=== PATIENT | female | born 1990 | race Caucasian/White ===

== ENCOUNTER 2024-08-22 13:42 | Emergency (ER) | payer OTHER, SELFPAY ==
[2024-08-22 13:44] VITALS: BP 124/75
[2024-08-22 14:09] LABS: % Basophils 0.6 % (0-2); % Eosinophils 1.5 % (0-6); % Lymphocytes 29.8 % (20.5-51.1); % Monocytes 5.9 % (1.7-9.3); % Neutrophils 61.2 % (42.2-75.2); Absolute Basophils 0.1 10^3/uL (0-0.2); Absolute Eosinophils 0.2 10^3/uL (0-0.7); Absolute Immature Granulocytes 0.1 10^3/uL (0-0.05); Absolute Lymphocytes 3.3 10^3/uL (1.2-3.4); Absolute Monocytes 0.7 10^3/uL (0.1-0.6); Absolute Neutrophils 6.7 10^3/uL (1.4-6.5); Hematocrit 36.7 % (37.0-47.0); Hemoglobin 13.1 g/dL (12.0-16.0); Mean Corp Hgb Conc. 35.7 g/dL (33.0-37.0); Mean Corpuscular Hgb 32.7 pg (27.0-31.0); Mean Corpuscular Volume 91.5 fL (81.0-99.0); Mean Platelet Volume 11.5 fL (7.4-10.4); Nucleated Red Blood Cells % 0 %; Platelet Count 214 10^3/uL (130-400); Red Blood Cell Count 4.01 10^6/uL (4.20-5.40); Red Cell Dist. Width 11.9 % (11.5-14.5)
[2024-08-22 14:28] LABS: ALT (SGPT) 30 U/L (0-35); AST (SGOT) 35 U/L (14-36); Albumin 4.8 g/dl (3.5-5.0); Alkaline Phosphatase 63 U/L (38-126); Blood Urea Nitrogen 14 mg/dl (7-17); Calcium 9.3 mg/dl (8.4-10.2); Carbon Dioxide 21 mmol/L (22-30); Chloride 100 mmol/L (98-107); Glucose 107 mg/dl (70-99); Sodium 133 mmol/L (135-145); Total Bilirubin 0.6 mg/dl (0.2-1.3); Total Protein 7.4 g/dl (6.3-8.2); eGFR > 60.00
--- NOTE | 2024-08-22 16:01 | ED.GENMED ---
History of Present Illness
General
Chief Complaint: Problems
Source: patient
Exam Limitations: none
Time Seen by Provider: 08/22/24 14:57
Nursing documentation reviewed up to this point in time: agreed with
History of Present Illness
History of Present Illness:
Patient is a 34y.o female at approximately 9 weeks gestation presenting to the emergency department with vaginal bleeding. Patient reports having a 'gush' of bright red blood earlier today and now with some mild spotting. Patient denies any
associated abdominal pain/cramping, nausea/vomiting, lightheadedness/dizziness. No shortness of breath. No dysuria.
Patient reports very similar episode approximately [address] to her first ultrasound. This was discussed with her CHILD AND FAMILY THERAPIST after they did find a small subchorionic hemorrhage on ultrasound as well as a documented intrauterine .
She was advised to come to the emergency department with any further vaginal bleeding.
Patient is following with [place] [facility]. Patient states that she is blood type O+.
Review of Systems
Review of Systems
Allergies reviewed?: Yes
All Other Systems: ROS reviewed and negative except as documented in HPI and ROS
Phy Exam
Physical Exam
Physical Exam:
Vitals: Patient's vital signs are stable. Afebrile
General: Patient is well appearing, no acute distress
Skin: Warm and dry, no rashes or lesions
Head: Normocephalic, atraumatic
Eyes: Sclera nonicteric. EOMs intact. No nystagmus.
Throat: Protecting airway
Neck: Normal ROM, no cervical spine tenderness, no meningismus
Cardiac: Regular rate and rhythm, no murmurs.
Pulm: Normal respiratory effort, no wheezes, rales, rhonchi heard on exam.
Abdomen: No abdominal tenderness.
Extremities: No evidence of cyanosis or edema
Neuro: AAOx3. CN II-XII intact. No focal neurologic deficits.
Psychiatric: Normal affect.
Course
Orders/Labs/Results
Orders:
Orders
08/22/24 13:46
US 1st Trimester Urgent
Comment:
Reason For Exam: 9 wks preg vag blding started ayt 1pm today
08/22/24 13:54
Beta HCG Quantitative Urgent
Is this a screen?: No
Complete Blood Count/With Diff Urgent
Comprehensive Metabolic Panel Urgent
08/22/24 16:08
Type+Screen Urgent
Urinalysis Reflex To Culture Urgent
Date Specimen was Collected: 08/22/24
Time Specimen was Collected: 16:04
Urine Microscopic Reflex Cult Urgent
08/22/24 16:50
ABO2 Urgent
BBK Wristband Number:
Associate notified that ABO2 has been ordered: [id number]
Date: 08/22/24
Time: 16:42
Break Off Worker ID: [id number]
Abnormal Lab Results
08/22/24 08/22/24
13:54 16:08
WBC 11.0 H 10^3/uL
(4.8-10.8)
RBC 4.01 L 10^6/uL
(4.20-5.40)
Hct 36.7 L %
(37.0-47.0)
MCH 32.7 H pg
(27.0-31.0)
MPV 11.5 H fL
(7.4-10.4)
Abs Immat Gran (auto) 0.1 H 10^3/uL
(0-0.05)
Absolute Neuts (auto) 6.7 H 10^3/uL
(1.4-6.5)
Absolute Monos (auto) 0.7 H 10^3/uL
(0.1-0.6)
Immature Gran % 1.0 H %
(0-0.5)
Sodium 133 L mmol/L
(135-145)
Carbon Dioxide 21 L mmol/L
(22-30)
Creatinine 0.5 L mg/dL
(0.6-1.0)
Glucose 107 H mg/dl
(70-99)
Ur Occult Blood Reflex 3+ A
(Negative)
Urine RBC 3-6 A /HPF
(0-2)
08/22/24 13:54
08/22/24 13:54
Vital Signs
Initial and Last Documented VS:
Initial Vital Signs
Temp Pulse Resp BP Pulse Ox
98.0 F 68 16 124/75 98
08/22/24 13:44 08/22/24 13:44 08/22/24 13:44 08/22/24 13:44 08/22/24 13:44
Last Documented Vital Signs
Temp Pulse Resp BP Pulse Ox
98.0 F 81 16 113/71 98
08/22/24 13:44 08/22/24 17:33 08/22/24 17:33 08/22/24 17:33 08/22/24 13:44
Information
Weeks gestation: Weeks: (9 weeks, 6 days)
Location: Location: (Intrauterine)
MDM/Problems Addressed
Differential Diagnosis Includes:
Not limited to: Threatened , inevitable , missed , subchorionic hemorrhage, etc.
MDM/Problems Addressed:
34-year-old G2, P0 female at approximately 9 weeks gestation presenting with vaginal bleeding. No associated abdominal pain, lightheadedness, shortness of breath. Patient did have ultrasound documented intrauterine last week with
CHILD AND FAMILY THERAPIST�[place]. Does have known subchorionic hemorrhage. Vital stable. Physical exam as above. Patient very well-appearing, no apparent distress. Abdomen soft and nontender. Cardio/pulmonary assessment unremarkable. Basic labs initiated in
triage without clinically significant abnormalities. Hemoglobin is stable. Beta hCG elevated. Given known subchronic hemorrhage�symptoms likely secondary to this. However�unable to fully exclude possible threatened . Will obtain pelvic
ultrasound. Will check urinalysis. Will confirm blood type to determine need for RhoGAM. Anticipate discharge.
Update: Pelvic ultrasound report reviewed which does show live intrauterine gestation approximately 9 weeks 6 days. Small subchorionic hemorrhage noted once again on ultrasound. Ultimately�I do suspect symptoms secondary to subchronic hemorrhage.
However discussed with patient unable to exclude threatened miscarriage despite no abnormal findings on ultrasound today. Urinalysis shows no signs of bacteria or infection. Blood type O+�RhoGAM not indicated. Patient stable for discharge with
CHILD AND FAMILY THERAPIST follow-up outpatient. She has appointment next week. Close return precautions discussed. Patient seen with attending physician
Chronic conditions affecting care:
N/A
Acute Exacerbation and/or Progression of Chronic Illness:
N/A
*Radiology
Radiology exam reviewed: radiology read reviewed
*Pulse Oximetry
Patient hypoxic: no
*EKG
Interpreted by ED Provider?: NA
*Cadd Instructor Interpretation
Rate: Cadd Instructor- N/A
*Critical Care Note
Total Time (30-74mins, 75-104mins- exclusive of procedures): Not Applicable
ED Attending Note
-
Portions of this chart may have been created with voice recognition software.� Occasional wrong word or��sound alike� substitutions may have occurred due to the inherent limitations of voice recognition software.
Discharge Plan
Departure
Patient Disposition: Home (Routine Discharge)
Date of Disposition: 08/22/24
Time of Disposition: 17:25
Patient with high blood pressure during this ER visit?: No
Condition: Good
Covid-19: Not Applicable
Discharge Problem:
Subchorionic hemorrhage in first trimester, Threatened miscarriage in early
Instructions: Threatened Miscarriage (DC), Subchorionic Bleeding
Prescriptions:
No Action
amoxicillin 500 mg Tablet
500 mg PO BID
clindamycin HCl 300 mg capsule
300 mg PO TID Qty: 20 0RF
Referrals:
Ryland Wilkerson DO [Family Provider] -
Activity Restrictions/Additional Instructions:
Return to the emergency department any persistent/heavy vaginal bleeding, dizziness/lightheadedness, abdominal pain, shortness of breath, worsening current symptoms, or any other concerns
-As discussed�your ultrasound did show a small subchorionic hemorrhage which may be the etiology of your vaginal bleeding today. However�we are unable to completely exclude a future miscarriage. You should follow-up very closely with your CHILD AND FAMILY THERAPIST.
You may require a repeat ultrasound
-Stay well-hydrated. I would avoid sexual intercourse until cleared by your CHILD AND FAMILY THERAPIST.
-Follow-up with your CHILD AND FAMILY THERAPIST tomorrow
Monitor your symptoms closely and return to the emergency department with any acute worsening/new symptoms or any other concerns
Interventions
Interventions:
*Risk Screen - Suicide Last Done: 08/22/24 13:44
*General Assessment Last Done: 08/22/24 14:29
*Neglect/Abuse Screening Last Done: 08/22/24 13:44
*ED COVID-19 Vaccine History Last Done: 08/22/24 14:29
*Nursing Disposition Last Done: 08/22/24 17:34
ED-Female Genitourinary Assessment Last Done: 08/22/24 14:29
Discharge Date and Time
Discharge Date/Time: 08/22/24 17:34
Print Language: HEBREW
[2024-08-22 16:49] LABS: Urine Albumin Negative (Neg - Trace); Urine Bilirubin Negative (Negative); Urine Character Clear (Clear); Urine Glucose Negative (Negative); Urine Ketone Negative (Negative); Urine Leukocyte Negative (Negative); Urine Nitrite Negative (Negative); Urine Occult Blood 3+ (Negative); Urine Specific Gravity 1.005 (<1.030); Urine Urobilinogen Negative (Neg - 1+)
[2024-08-22 16:59] LABS: Urine Color Straw
[2024-08-22 17:23] LABS: Urine White Cell 0-2 /HPF (0-5)
[2024-08-22 17:33] VITALS: BP 113/71
== END 2024-08-22 17:34 | disposition home or self-care (01) ==
LOC: EMR 13:42
PROVIDERS: Physician Assistant; Student in an Organized Health Care Education/Training Program; EMERGENCY PHYSICIAN Emergency Medicine; FAMILY PHYSICIAN Family Medicine
DX: O20.0 Threatened abortion (principal); O20.8 Other hemorrhage in early pregnancy; Z3A.09 9 weeks gestation of pregnancy
CPT/HCPCS: 99284; 76801; 80053; 81003; 81015; 84702; 85025; 86850; 86900; 86901

== ENCOUNTER 2024-12-15 07:32 | Emergency (ER) | payer OTHER, SELFPAY ==
[2024-12-15 07:40] VITALS: BP 114/72
--- NOTE | 2024-12-15 08:11 | ED.GENMED ---
History of Present Illness
<CAMPOS Da Silva - Last Filed: 12/15/24 12:07>
General
Chief Complaint: Throat Problem
Source: patient
Exam Limitations: none
Time Seen by Provider: 12/15/24 07:51
History of Present Illness
History of Present Illness:
This is a 34 y/o female in her second trimester with recurrent GERD and reported tonsil stones, in which she removes herself, since her first trimester who presents with odynophagia x 2 days. She reportedly removed a tonsil stone yesterday
and since then she's experienced odynophagia. She feels as though there is an abscess on or near her right tonsil. She did not want to risk infection while and as a result came to ED. She has had strep in the past and this does not feel the
same. Denies fever, excessive fatigue, dysphagia, cervical lymphadenopathy, changes in vision, changes in hearing, chest pain, palpitations, N/V or vaginal bleeding.
She has no sick contacts that she's aware of. She is not allergic to any abx.
Review of Systems
<CAMPOS Da Silva - Last Filed: 12/15/24 12:07>
Review of Systems
All Other Systems: ROS reviewed and negative except as documented in HPI and ROS
Constitutional: Reports no symptoms
EENT: Reports sore throat
Respiratory: Reports no symptoms
Cardiac: Reports no symptoms
ABD/GI: Reports no symptoms
: Reports no symptoms
Musculoskeletal: Reports no symptoms
Phy Exam
<CAMPOS Da Silva - Last Filed: 12/15/24 12:07>
General Physical Exam
General Presentation: well appearing and no apparent distress
General age: appears stated age
General Skin: warm
General Habitus: normal
General Mental: alert
General Hydration: appears well hydrated
ENT Exam
ENT Exam: normocephalic, pharyngeal erythema, swallowing well and tonsillar exudate
Course
<CAMPOS Da Silva - Last Filed: 12/15/24 12:07>
Vital Signs
Initial and Last Documented VS:
Initial Vital Signs
Temp Pulse Resp BP Pulse Ox
98.2 F 80 16 114/72 98
12/15/24 07:40 12/15/24 07:40 12/15/24 07:40 12/15/24 07:40 12/15/24 07:40
Last Documented Vital Signs
Temp Pulse Resp BP Pulse Ox
98.2 F 80 16 114/72 98
12/15/24 07:40 12/15/24 07:40 12/15/24 07:40 12/15/24 07:40 12/15/24 07:40
<Sam Stanton DO - Last Filed: 12/15/24 08:28>
Vital Signs
Initial and Last Documented VS:
Initial Vital Signs
Temp Pulse Resp BP Pulse Ox
98.2 F 80 16 114/72 98
12/15/24 07:40 12/15/24 07:40 12/15/24 07:40 12/15/24 07:40 12/15/24 07:40
Last Documented Vital Signs
Temp Pulse Resp BP Pulse Ox
98.2 F 80 16 114/72 98
12/15/24 07:40 12/15/24 07:40 12/15/24 07:40 12/15/24 07:40 12/15/24 07:40
<CAMPOS Da Silva - Last Filed: 12/15/24 12:07>
MDM/Problems Addressed
Differential Diagnosis Includes:
not limited to: Tonsilloliths vs peritonsillar abscess vs retropharyngeal abscess vs strep pharyngitis
MDM/Problems Addressed:
This is a 34 y/o female in her second trimester with recurrent GERD and reported tonsil stones, in which she removes herself, since her first trimester who presents with odynophagia x 2 days. No other reported symptoms. Vitals stable. NAD.
Some erythema and prominence of right tonsil. Small white punctate noted. Stone vs. pustule. No evidence of abscess noted. Doubt strep pharyngitis. Will cover with course of penicillin VK.
<CAMPOS Da Silva - Last Filed: 12/15/24 12:07>
*Critical Care Note
Total Time (30-74mins, 75-104mins- exclusive of procedures): Not Applicable
ED Attending Note
<CAMPOS Da Silva - Last Filed: 12/15/24 12:07>
-
Portions of this chart may have been created with voice recognition software.� Occasional wrong word or��sound alike� substitutions may have occurred due to the inherent limitations of voice recognition software.
<Sam Stanton DO - Last Filed: 12/15/24 08:28>
ED Attending Note
Patient seen and examined by attending physician: Yes
I performed the substantive portion of visit, reviewed & personally made and approve the management plan that is documented in note by myself or RAMESH.: Yes
ED Attending Note:
Patient presents to the emergency room complaining of right-sided tonsillar pain. Patient has a history of chronic tonsillar inflammation and tonsil stones. She believes this is become worse because she has increased reflux now that she is
. No fever or chills. Some discomfort with swallowing but no inability to swallow. No stridor.
General: Awake, Alert, Oriented X3. No acute distress.
Vitals: unremarkable
Head: Atraumatic
Eyes: Pupils equal, EOMI
Throat: Airway intact, no exudates. Mild erythema and prominence of the right tonsil. There is a punctate area of either stone or pustule. No evidence of a peritonsillar abscess.
Neck: Trachea midline
Neuro: Nonfocal
Skin: Warm, dry, no rash
Extremities: pulses equal b/l, no edema
Appears to have some inflammation right tonsil but no abscess. Will cover with a course of antibiotics.
Discharge Plan
Departure
Patient Disposition: Home (Routine Discharge)
Date of Disposition: 12/15/24
Time of Disposition: 08:28
Patient with high blood pressure during this ER visit?: No
Condition: Good
Discharge Problem:
Acute tonsillitis
Instructions: Sore throat in adults - ED discharge instructions
Prescriptions:
New
penicillin V potassium 500 mg tablet
500 mg PO TID Qty: 21 0RF
No Action
amoxicillin 500 mg Tablet
500 mg PO BID
clindamycin HCl 300 mg capsule
300 mg PO TID Qty: 20 0RF
Referrals:
Ryland Wilkerson DO [Family Provider, Family Practice]
Interventions
Interventions:
*Risk Screen - Suicide Last Done: 12/15/24 07:40
*General Assessment Last Done: 12/15/24 08:30
*Neglect/Abuse Screening Last Done: 12/15/24 07:40
*ED- Fall Risk Assessment Last Done: 12/15/24 08:30
*ED COVID-19 Vaccine History Last Done: 12/15/24 08:30
*Nursing Disposition Last Done: 12/15/24 08:30
ED-EENT Assessment Last Done: 12/15/24 08:30
ED- Pulmonary Assessment Last Done: 12/15/24 08:30
Discharge Date and Time
Discharge Date/Time: 12/15/24 08:30
Print Language: SYRIAN
== END 2024-12-15 08:30 | disposition home or self-care (01) ==
LOC: EMR 07:32
PROVIDERS: EMERGENCY PHYSICIAN Emergency Medicine; FAMILY PHYSICIAN Family Medicine
DX: O99.891 Other specified diseases and conditions complicating pregnancy (principal); J03.90 Acute tonsillitis, unspecified; Z3A.00 Weeks of gestation of pregnancy not specified; K21.9 Gastro-esophageal reflux disease without esophagitis
CPT/HCPCS: 99282

== ENCOUNTER 2024-12-24 18:31 | Observation (INO) | payer OTHER, SELFPAY ==
[2024-12-24 18:39] VITALS: BP 127/72; BMI 30.8
== END 2024-12-24 20:08 | disposition home or self-care (01) ==
LOC: LDRP 18:31
PROVIDERS: ADMITTING PHYSICIAN Obstetrics & Gynecology
DX: O26.892 Other specified pregnancy related conditions, second trimester (principal); Z3A.27 27 weeks gestation of pregnancy; R10.2 Pelvic and perineal pain

== ENCOUNTER 2025-03-08 09:18 | Observation (INO) | payer OTHER, SELFPAY ==
[2025-03-08 09:54] VITALS: BP 118/64; BMI 33.4
[2025-03-08 10:01] LABS: Hematocrit 35.2 % (37.0-47.0); Hemoglobin 12.2 g/dL (12.0-16.0); Mean Corp Hgb Conc. 34.7 g/dL (33.0-37.0); Mean Corpuscular Volume 93.1 fL (81.0-99.0); Platelet Count 184 10^3/uL (130-400); Red Cell Dist. Width 13.0 % (11.5-14.5)
[2025-03-08 10:03] LABS: Urine Character Clear (Clear)
[2025-03-08 10:41] LABS: ALT (SGPT) 12 U/L (0-35); AST (SGOT) 23 U/L (14-36); Albumin 3.6 g/dl (3.5-5.0); Alkaline Phosphatase 132 U/L (38-126); Blood Urea Nitrogen 8 mg/dl (7-17); Calcium 8.9 mg/dl (8.4-10.2); Carbon Dioxide 19 mmol/L (22-30); Chloride 112 mmol/L (98-107); Estimated Creatinine Clearance > 125 ml/min; Glucose 71 mg/dl (70-99); Potassium 4.2 mmol/L (3.5-5.1); Sodium 135 mmol/L (135-145); Total Protein 6.4 g/dl (6.3-8.2); eGFR > 60.00
== END 2025-03-08 12:40 | disposition home or self-care (01) ==
LOC: PNTC-IN 09:18
PROVIDERS: ADMITTING PHYSICIAN Obstetrics & Gynecology
DX: O26.893 Other specified pregnancy related conditions, third trimester (principal); R03.0 Elevated blood-pressure reading, without diagnosis of hypertension; Z3A.37 37 weeks gestation of pregnancy
CPT/HCPCS: 80053; 81003; 82570; 84156; 85027; 86850; 86900; 86901; G0378

== ENCOUNTER 2025-03-16 17:04 | Inpatient (IN) | payer OTHER, SELFPAY ==
[2025-03-16 17:14] VITALS: BMI 34.8
[2025-03-16 17:20] VITALS: BP 126/68
[2025-03-16 17:55] LABS: Hematocrit 33.5 % (37.0-47.0); Hemoglobin 11.8 g/dL (12.0-16.0); Mean Corp Hgb Conc. 35.2 g/dL (33.0-37.0); Mean Corpuscular Volume 92.5 fL (81.0-99.0); Nucleated Red Blood Cells % 0 %; Platelet Count 192 10^3/uL (130-400); Red Cell Dist. Width 12.8 % (11.5-14.5)
[2025-03-16 18:09] LABS: AST (SGOT) 25 U/L (14-36); Albumin 3.7 g/dl (3.5-5.0); Alkaline Phosphatase 149 U/L (38-126); Blood Urea Nitrogen 9 mg/dl (7-17); Calcium 8.9 mg/dl (8.4-10.2); Carbon Dioxide 15 mmol/L (22-30); Chloride 110 mmol/L (98-107); Estimated Creatinine Clearance > 125 ml/min; Glucose 113 mg/dl (70-99); Potassium 3.9 mmol/L (3.5-5.1); Sodium 133 mmol/L (135-145); Total Protein 6.5 g/dl (6.3-8.2); eGFR > 60.00
[2025-03-16 18:35] LABS: ALT (SGPT) < 20 U/L (0-35)
[2025-03-16] MEDS: PRENATAL PLUS PO (22:48)
[2025-03-16] MEDS: LR 1000 IV (23:31)
[2025-03-17] MEDS: PITOCIN 30 UNITS/NSS 500 ML IV (00:15)
[2025-03-17] MEDS: LR 1000 IV (03:50)
[2025-03-17] MEDS: SUBLIMAZE 100 MCG EPIDURAL (11:00)
[2025-03-17] MEDS: FENTANYL/BUPIVACAINE 100 EPIDURAL (11:01)
[2025-03-17] MEDS: COLACE 100 MG PO (19:24)
[2025-03-17] MEDS: MOTRIN 600 MG PO (19:24)
[2025-03-17] MEDS: TYLENOL 650 MG PO (23:32)
[2025-03-17] MEDS: PRENATAL PLUS 1 TABLET PO (23:32)
[2025-03-18] MEDS: MOTRIN 600 MG PO ×4 (02:04→23:38)
[2025-03-18] MEDS: TYLENOL 650 MG PO ×3 (04:47→20:30)
[2025-03-18 05:11] LABS: Hematocrit 32.7 % (37.0-47.0); Hemoglobin 11.4 g/dL (12.0-16.0)
[2025-03-18] MEDS: COLACE 100 MG PO ×2 (08:59→20:30)
[2025-03-18] MEDS: PRENATAL PLUS 1 TABLET PO ×2 (09:05→23:38)
[2025-03-19] MEDS: MOTRIN 600 MG PO ×2 (06:28→11:27)
[2025-03-19] MEDS: TYLENOL 650 MG PO ×2 (06:28→11:28)
[2025-03-19] MEDS: COLACE 100 MG PO (10:09)
[2025-03-21 17:30] LABS: Syphilis/T. pallidum Ab Reflex Negative (Negative)
== END 2025-03-19 15:30 | disposition home or self-care (01) | DRG 807 ==
LOC: LDRP 17:04
PROVIDERS: Obstetrics & Gynecology; ADMITTING PHYSICIAN Obstetrics & Gynecology; FAMILY PHYSICIAN Obstetrics & Gynecology
PROC: 3E033VJ Introduction of Other Hormone into Peripheral Vein, Percutaneous Approach (ICD-10-PCS; 2025-03-16)
PROC: 10907ZC Drainage of Amniotic Fluid, Therapeutic from Products of Conception, Via Natural or Artificial Opening (ICD-10-PCS; 2025-03-17)
PROC: 10E0XZZ Delivery of Products of Conception, External Approach (ICD-10-PCS; 2025-03-17)
PROC: 0HQ9XZZ Repair Perineum Skin, External Approach (ICD-10-PCS; 2025-03-17)
DX: O13.4 Gestational [pregnancy-induced] hypertension without significant proteinuria, complicating childbirth (principal); Z37.0 Single live birth; Z3A.39 39 weeks gestation of pregnancy
CPT/HCPCS: 36415; 80053; 82570; 84156; 85014; 85018; 85025; 86780; 86850; 86900; 86901